=== PATIENT | male | born 1980 | race Caucasian/White ===

== ENCOUNTER 2017-03-16 00:19 | Emergency (ER) | payer BC | END 2017-03-16 04:38 | disposition home or self-care (01) | LOC: ER1 00:19 | DX: S05.02XA Injury of conjunctiva and corneal abrasion without foreign body, left eye, initial encounter (principal); W29.8XXA Contact with other powered hand tools and household machinery, initial encounter; Z88.2 Allergy status to sulfonamides | CPT/HCPCS: 90471; 90715; 99283 ==